=== PATIENT | female | born 1945 | race Two or more races ===

== ENCOUNTER 2019-12-06 00:41 | Inpatient (IN) | payer MEDICARE, MEDICAID ==
[~2019-12-06] VITALS: Ht 157.5 cm; Wt 78.1 kg
--- NOTE | 2019-12-06 00:53 | NUR ---
BIB EMS C/O PALPITATION. PT A, OX3, UZBEK SPEAKING. DENIED CP OR SOB. PLACED ON A ,MONITOR
[2019-12-06] MEDS ORDERED: LORAZEPAM 1 MG TABLET PO ONE (01:00)
[2019-12-06] MEDS ORDERED: LORAZEPAM 1 MG TABLET ONE (01:10)
[2019-12-06 01:14] LABS: BASOPHILS # (AUTO) 0.1 /CMM (0.0-0.2); BASOPHILS % (AUTO) 0.6 % (0.0-2.0); EOSINOPHILS % (AUTO) 1.2 % (0.0-6.0); HEMATOCRIT 38 % (33-45); HEMOGLOBIN 12.2 g/dL (11.5-14.8); LYMPHOCYTES # (AUTO) 1.5 /CMM (0.8-4.8); LYMPHOCYTES % (AUTO) 11.9 % (20.0-44.0); MEAN CORPUSCULAR HGB CONC 32 g/dl (31.0-36.0); MEAN CORPUSCULAR VOLUME 83 fL (82-100); MONOCYTES # (AUTO) 0.9 /CMM (0.1-1.30); MONOCYTES % (AUTO) 6.7 % (2.0-12.0); NEUTROPHILS # (AUTO) 10.2 /CMM (1.8-8.9); NEUTROPHILS % (AUTO) 79.6 % (43.0-81.0); PLATELET COUNT (AUTO) 302 /CMM (150-450); RED BLOOD CELL COUNT(AUTO) 4.57 MIL/uL (4.0-5.2); WHITE BLOOD COUNT (AUTO) 12.9 K/uL (4.3-11.0)
[2019-12-06 01:30] LABS: ALANINE AMINOTRANSFERASE 12 U/L (12-78); ALBUMIN 3.7 g/dL (3.4-5.0); ALKALINE PHOSPHATASE 105 U/L (46-116); ASPARTATE AMINOTRANSFERASE 19 U/L (15-37); BILIRUBIN,TOTAL 0.2 mg/dL (0.2-1.0); CALCIUM, SERUM 9.4 mg/dL (8.5-10.1); CARBON DIOXIDE 22 mmol/L (21-32); CHLORIDE 101 mmol/L (98-107); CREATININE 2.1 mg/dL (0.6-1.3); GLUCOSE 167 mg/dL (74-106); POTASSIUM 4.3 mmol/L (3.5-5.1); SODIUM SERUM 136 mmol/L (136-145); TOTAL PROTEIN, SERUM 7.4 g/dL (6.4-8.2); UREA NITROGEN, BLOOD 44 mg/dL (7-18)
--- NOTE | 2019-12-06 01:52 | NUR ---
DARRON (DAUGHTER) CONTACT INFORMATION: [phone]
[2019-12-06] MEDS ORDERED: ASPIRIN 325 MG TABLET PO ONE (02:00)
[2019-12-06] MEDS ORDERED: ASPI-1152 PO (02:02)
[2019-12-06] MEDS ORDERED: TRAM50TA2 PO (02:02)
[2019-12-06] MEDS ORDERED: FURO20TA4 PO (02:02)
[2019-12-06] MEDS ORDERED: ERGO500040 (02:02)
[2019-12-06] MEDS ORDERED: ROSU10TA2 PO (02:02)
[2019-12-06] MEDS ORDERED: ASPIRIN 325 MG TABLET ONE (02:10)
[2019-12-06] MEDS ORDERED: CEFTRIAXONE 1GM BAG (ER ONLY) 50 ML IV ONE (02:19)
[2019-12-06] MEDS ORDERED: AZITHROMYCIN 500 MG VIAL ONE (02:25)
[2019-12-06] MEDS ORDERED: RIVA2.5T PO (02:29)
[2019-12-06] MEDS ORDERED: BIMA2.5D5 EACHEYE (02:29)
[2019-12-06] MEDS ORDERED: SITA100T PO (02:29)
[2019-12-06] MEDS ORDERED: INSU100I4 SQ (02:29)
[2019-12-06] MEDS ORDERED: HYDR100T27 PO (02:29)
[2019-12-06] MEDS ORDERED: GABA-532 PO (02:29)
[2019-12-06] MEDS ORDERED: GLIP5TAB26 PO (02:29)
[2019-12-06] MEDS ORDERED: DEXL60CA3 PO (02:29)
[2019-12-06] MEDS ORDERED: ICOS1CAP PO (02:29)
[2019-12-06] MEDS ORDERED: FENO145T21 PO (02:29)
[2019-12-06] MEDS ORDERED: ALEN70TA6 PO (02:29)
[2019-12-06] MEDS ORDERED: CLON0.2T PO (02:29)
[2019-12-06] MEDS ORDERED: MECL-159 PO (02:29)
[2019-12-06] MEDS ORDERED: INSU100I26 SQ (02:29)
[2019-12-06] MEDS ORDERED: OLME1TAB16 PO (02:29)
[2019-12-06] MEDS ORDERED: AMLO5TAB9 PO (02:29)
[2019-12-06] MEDS ORDERED: DONE5TAB34 PO (02:29)
[2019-12-06] MEDS ORDERED: DILT-4 PO (02:29)
[2019-12-06] MEDS ORDERED: AZITHROMYCIN 500 MG in IV D5W 250 ML IV ONE (02:30)
[2019-12-06] MEDS ORDERED: CEFTRIAXONE 1GM BAG (ER ONLY) 1 GM/50 ML PIGGYBACK IV ONE (02:30)
[2019-12-06] MEDS ORDERED: hydrALAZINE HCL IV 20 MG VIAL ONE (02:36)
[2019-12-06] MEDS ORDERED: hydrALAZINE HCL IV 20 MG VIAL IV ONE (03:00)
--- NOTE | 2019-12-06 03:03 | NUR ---
REPORT GIVEN TO ZAIRA ON THIRD FLOOR
--- NOTE | 2019-12-06 03:20 | NUR ---
PT WAS TRANSFERRED TO 311 UNDER ACLS
--- NOTE | 2019-12-06 03:25 | NUR ---
RN OPEN NOTES RECEIVED PATIENT FROM ER VIA [facility]. A/OX3. NO SIGNS OF DISTRESS OR DISCOMFORT. BREATHING EVEN AND UNLABORED. IV ACCESS IN L HAND WITH AZITHROMYCIN INFUSING, PATENT AND INTACT, NO SIGNS OF REDNESS OR INFILTRATION. ORIENTED PATIENT TO UNIT AND ROOM. ATTACHED TO TELE MONITOR WITH SR 80 NOTED. BED IN LOW LOCKED POSITION WITH SIDE RAILS X2. CALL LIGHT WITHIN REACH. WILL CONTINUE TO MONITOR.
[2019-12-06] MEDS ORDERED: HYDROCODONE/APAP 5/325MG 1 EACH TABLET PO PRN (03:30)
[2019-12-06] MEDS ORDERED: ZOLPIDEM TARTRATE 5 MG TABLET PO PRN (03:30)
[2019-12-06] MEDS ORDERED: ACETAMINOPHEN 325 MG TABLET PO PRN (03:30)
[2019-12-06] MEDS ORDERED: MAGNESIUM HYDROXIDE 30 ML UDC PO PRN (03:30)
[2019-12-06] MEDS ORDERED: ONDANSETRON HCL/PF 4 MG/2 ML VIAL IVP PRN (03:30)
[2019-12-06] MEDS ORDERED: Z GUARD REMEDY 2 OZ OINT TP PRN (03:30)
[2019-12-06] MEDS ORDERED: MAG HYDROX/AL HYDROX/SIMETH 30 ML UDC PO PRN (03:30)
[2019-12-06 04:11] VITALS: BP 155/63
[2019-12-06] MEDS ORDERED: ALENDRONATE 70 MG TABLET PO SCH (06:00)
--- NOTE | 2019-12-06 06:41 | NUR ---
RN CLOSING NOTES PATIENT RESTING IN BED, EASILY AROUSABLE. A/OX3. NO SIGNS OF DISTRESS OR DISCOMFORT. BREATHING EVEN AND UNLABORED. IV ACCESS IN L HAND, PATENT AND INTACT, NO SIGNS OF REDNESS OR INFILTRATION. ON TELE MONITORING WITH SR 63 NOTED. ALL NEEDS MET. NO SIGNIFICANT CHANGES THROUGH THE NIGHT. BED IN LOW LOCKED POSITION WITH SIDE RAILS X2. CALL LIGHT WITHIN REACH. WILL ENDORSE TO AM SHIFT FOR ALDA.
[2019-12-06] MEDS: FUROSEMIDE 40 MG/4 ML VIAL IV SCH ×3 (07:08→15:34)
[2019-12-06 08:00] VITALS: BP 148/61
--- NOTE | 2019-12-06 08:00 | NUR ---
RN NOTES RECEIVED PATIENT IN THE BED A/O X4 ARMENIA SPEAKER FEMALE. PATIENT HAS NO ACUTE RESPIRATORY DISTRESS,UNLABORED BREATHING. V/S STABLE, PATIENT REFUSED PAIN, ON TELE SR-83. PATIENT AMBULATORY, ASSIST BATHROOM FOR SAFETY. ADMINISTERED SCHEDULED MEDICATION, IV [id number] ON LEFT HAND INTACT. CALL LIGHT WITHIN TO REACH, CONTINUED MONITORING.
[2019-12-06] MEDS ORDERED: CLONIDINE HCL 0.2 MG TABLET PO SCH (09:00)
[2019-12-06] MEDS ORDERED: glipiZIDE XL 2.5 MG TAB.OSM.24 PO SCH (09:00)
[2019-12-06] MEDS ORDERED: FUROSEMIDE 40 MG/4 ML VIAL IV SCH (09:00)
[2019-12-06] MEDS ORDERED: GLIPIZIDE XL 5 MG TAB.OSM.24 PO SCH (09:00)
[2019-12-06] MEDS: DILTIAZEM HCL CD 240 MG PO SCH (09:51)
[2019-12-06] MEDS: ASPIRIN EC 81 MG TABLET.DR PO SCH (09:51)
[2019-12-06] MEDS: hydrALAZINE HCL 50 MG TABLET PO SCH ×3 (09:52→17:15)
[2019-12-06] MEDS: MECLIZINE HCL 25 MG TABLET PO SCH (09:52)
[2019-12-06] MEDS: ATORVASTATIN 40 MG TABLET PO SCH (09:52)
[2019-12-06] MEDS: GABAPENTIN 100 MG CAPSULE PO SCH (09:52)
[2019-12-06] MEDS: FENOFIBRATE NANOCRYS (145 MG) 145 MG TABLET PO SCH (09:52)
[2019-12-06] MEDS: LINAGLIPTIN 5 MG TABLET PO SCH (09:53)
[2019-12-06] MEDS: TRAMADOL HCL 50 MG TABLET PO SCH ×2 (09:54→17:20)
[2019-12-06] MEDS: DONEPEZIL 5 MG TABLET PO SCH (09:54)
[2019-12-06] MEDS: RIVAROXABAN 10 MG TABLET PO SCH ×2 (10:02→17:21)
[2019-12-06] MEDS: AMLODIPINE BESYLATE 5 MG TABLET PO SCH (10:03)
[2019-12-06] MEDS: CLONIDINE HCL 0.1 MG TABLET PO SCH ×4 (10:04→17:16)
--- NOTE | 2019-12-06 12:00 | NUR ---
RN N NOTES BS-252 MG/DL COVERAGE GIVEN, PATIENT TOLERATED LUNCH WELL, MED COMPLIANT. SEEN HOSPITALIST, NO NEW ORDER. CONTINUED HOSPITALIZATION. PER ACCOUNT CLASSIFICATION CLERK COLLECT UA. ORDER TAKEN AND CARRIED OUT.
--- NOTE | 2019-12-06 12:30 | NUR ---
RN NOTES UA COLLECTED CLEAN CATCH, CALLED LAB FOR HYDROPRESS OPERATOR/
[2019-12-06] MEDS ORDERED: *INSULIN REGULAR(HUMULIN R)HUM 100 UNIT/ML VIAL SQ PRN (13:00)
[2019-12-06] MEDS ORDERED: DEXTROSE 50%-WATER 50 ML DISP.SYRIN IV PRN (13:00)
[2019-12-06] MEDS: INSULIN REGULAR, HUMAN 100 UNIT/ML 3 ML VIAL SQ PRN ×2 (14:13→17:23)
[2019-12-06 14:44] LABS: APPEARANCE,URINE CLEAR (CLEAR); BILIRUBIN,URINE NEGATIVE (NEGATIVE); BLOOD, URINE NEGATIVE Ery/uL (NEGATIVE); COLOR,URINE YELLOW (YELLOW); KETONES,URINE NEGATIVE (NEGATIVE); LEUKOCYTE ESTERASE ,URINE NEGATIVE (NEGATIVE); NITRITE, URINE NEGATIVE (NEGATIVE); PH,URINE 5.5 (5.0-8.0); PROTEIN,URINE NEGATIVE (NEGATIVE); UGLUCOSE NEGATIVE (NEGATIVE); UROBILINOGEN,URINE 0.2 EU/dL (0.2)
[2019-12-06 14:46] LABS: EOSINOPHIL,URINE None Seen
[2019-12-06 14:53] LABS: CREATININE, URINE 27.1 MG/DL (30.0-125.0); URINE TOTAL PROTEIN 11.9 mg/dL (0-11.9)
[2019-12-06 16:00] VITALS: BP 147/50
[2019-12-06] MEDS: BLOOD SUGAR DIAGNOSTIC 1 EACH STRIP VI SCH ×2 (17:13→21:56)
[2019-12-06] MEDS ORDERED: BIMATOPROST 2.5 ML DROPS OP SCH (18:00)
--- NOTE | 2019-12-06 18:00 | NUR ---
RN NOTES BS-235 MG/DL COVERAGE GIVEN, ALSO ADMINISTERED SCHEDULED MEDICATION, V/S STABLE, TOLERATED DINNER WELL. ASSIST PATIENT TO THE BATHROOM, CALL LIGHT WITHIN TO REACH. ENDORSED ONCOMING NURSE FOLLOW PLAN OF CARE.
--- NOTE | 2019-12-06 19:30 | NUR ---
TAMPER OPERATOR OPENING NOTES RECEIVED PATIENT FROM MORNING SHIFT, ALERT AND ORIENTED X 3. AMBULATORY WITH ASSIST, VERBALLY RESPONSIVE AND ABLE TO FOLLOW DIRECTIONS. BREATHING REGULAR AND UNLABORED ON ROOM AIR. LEFT HAND G20 IV LINE INTACT AND PATENT, FLUSHING WELL WITH NO BLEEDING OR S/S OF INFILTRATION NOTED. ON CARDIAC MONITORING WITH NSR AT 88bpm. DENIES ANY SUICIDAL/HOMICIDAL IDEATION AT THIS TIME. NO COMPLAINTS OF PAIN/DISCOMFORT REPORTED OF NOW. BED LOW AND LOCKED ON SEMI FOWLERS POSITION. CALL LIGHT IN REACH. WILL CONTINUE TO MONITOR.
[2019-12-06 20:00] VITALS: BP 137/51
[2019-12-06 22:00] VITALS: BP 137/51
--- NOTE | 2019-12-06 22:00 | NUR ---
FAIRING WORKER NOTES BS 185mg/dl NOTED, 3UNITS GIVEN SQ. SNACKS PROVIDED ON BEDSIDE. WILL CONTINUE TO MONITOR.
[2019-12-07 06:33] LABS: BASOPHILS # (AUTO) 0.1 /CMM (0.0-0.2); BASOPHILS % (AUTO) 0.9 % (0.0-2.0); EOSINOPHILS % (AUTO) 4.1 % (0.0-6.0); HEMATOCRIT 37 % (33-45); HEMOGLOBIN 11.8 g/dL (11.5-14.8); LYMPHOCYTES # (AUTO) 1.7 /CMM (0.8-4.8); LYMPHOCYTES % (AUTO) 17.8 % (20.0-44.0); MEAN CORPUSCULAR HGB CONC 32 g/dl (31.0-36.0); MEAN CORPUSCULAR VOLUME 83 fL (82-100); MONOCYTES # (AUTO) 0.9 /CMM (0.1-1.30); MONOCYTES % (AUTO) 9.2 % (2.0-12.0); NEUTROPHILS # (AUTO) 6.4 /CMM (1.8-8.9); PLATELET COUNT (AUTO) 307 /CMM (150-450); RED BLOOD CELL COUNT(AUTO) 4.48 MIL/uL (4.0-5.2); WHITE BLOOD COUNT (AUTO) 9.4 K/uL (4.3-11.0)
[2019-12-07] MEDS: INSULIN REGULAR, HUMAN 100 UNIT/ML 3 ML VIAL SQ PRN ×2 (06:33→12:01)
--- NOTE | 2019-12-07 06:35 | NUR ---
CASINO ASSISTANT MANAGER NOTES BS 243mg/dl, 6UNITS REGULAR INSULIN GIVEN SQ. SNACKS PROVIDED ON BEDSIDE. WILL CONTINUE TO MONITOR.
--- NOTE | 2019-12-07 06:40 | NUR ---
CENTRIFUGE SEPARATOR TENDER CLOSING NOTES PATIENT IN BED ALERT AND ORIENTED X 3. BREATHING REGULAR AND UNLABORED ON ROOM AIR. LEFT HAND G20 IV LINE PATENT AND FLUSHING WELL. MAINTAINED ON CARDIAC MONITORING WITH NSR AT 86bpm. NO COMPLAINTS OF PAIN/DISCOMFORT REPORTED THE WHOLE SHIFT. BED LOW AND LOCKED ON SEMI FOWLERS POSITION. CALL LIGHT IN REACH. WILL ENDORSE TO MORNING SHIFT FOR ALDA.
[2019-12-07] MEDS: BLOOD SUGAR DIAGNOSTIC 1 EACH STRIP VI SCH ×3 (06:49→17:30)
[2019-12-07 06:56] LABS: ALANINE AMINOTRANSFERASE 18 U/L (12-78); ALBUMIN 3.1 g/dL (3.4-5.0); ALKALINE PHOSPHATASE 91 U/L (46-116); ASPARTATE AMINOTRANSFERASE 13 U/L (15-37); B-TYPE NATRIURETIC PEPTIDE 4059 PG/ML (0-125); BILIRUBIN,TOTAL 0.4 mg/dL (0.2-1.0); CALCIUM, SERUM 8.7 mg/dL (8.5-10.1); CARBON DIOXIDE 26 mmol/L (21-32); CHLORIDE 101 mmol/L (98-107); CREATININE 2.2 mg/dL (0.6-1.3); GLUCOSE 264 mg/dL (74-106); MAGNESIUM 2.3 mg/dL (1.8-2.4); PHOSPHORUS 5.1 mg/dL (2.5-4.9); POTASSIUM 4.6 mmol/L (3.5-5.1); SODIUM SERUM 137 mmol/L (136-145); TOTAL PROTEIN, SERUM 6.6 g/dL (6.4-8.2); UREA NITROGEN, BLOOD 48 mg/dL (7-18)
[2019-12-07 07:00] LABS: CHOLESTEROL 150 mg/dL (<200); CREATINE KINASE, TOTAL 53 U/L (26-192); HDL CHOLESTEROL 57 mg/dL (40-60); LDL 73 mg/dL (0-99); THYROID STIMULATING HORMONE 1.715 uIU/mL (0.358-3.74); TRIGLYCERIDES 138 mg/dL (30-150)
[2019-12-07 08:00] VITALS: BP 163/61
[2019-12-07] MEDS: RIVAROXABAN 10 MG TABLET PO SCH ×2 (08:37→16:47)
[2019-12-07] MEDS: MECLIZINE HCL 25 MG TABLET PO SCH (08:38)
[2019-12-07] MEDS: GABAPENTIN 100 MG CAPSULE PO SCH (08:38)
[2019-12-07] MEDS: DILTIAZEM HCL CD 240 MG PO SCH (08:38)
[2019-12-07] MEDS: ASPIRIN EC 81 MG TABLET.DR PO SCH (08:38)
[2019-12-07] MEDS: FENOFIBRATE NANOCRYS (145 MG) 145 MG TABLET PO SCH (08:38)
[2019-12-07] MEDS: DONEPEZIL 5 MG TABLET PO SCH (08:38)
[2019-12-07] MEDS: LINAGLIPTIN 5 MG TABLET PO SCH (08:38)
[2019-12-07] MEDS: ATORVASTATIN 40 MG TABLET PO SCH (08:38)
[2019-12-07] MEDS: hydrALAZINE HCL 50 MG TABLET PO SCH ×3 (08:39→16:49)
[2019-12-07] MEDS: CLONIDINE HCL 0.1 MG TABLET PO SCH ×3 (08:39→16:48)
[2019-12-07] MEDS: AMLODIPINE BESYLATE 5 MG TABLET PO SCH (08:39)
[2019-12-07] MEDS: TRAMADOL HCL 50 MG TABLET PO SCH ×2 (08:51→16:45)
[2019-12-07] MEDS ORDERED: FUROSEMIDE 40 MG TABLET PO SCH (09:00)
--- NOTE | 2019-12-07 09:42 | NUR ---
MS RN - OPENING NOTES Received patient from can striper nurse, in bed, awake, coherent and cooperative, non-labored breathing noted, IV line access at left hand.
[2019-12-07] MEDS ORDERED: FURO-145 PO (11:52)
[2019-12-07 16:00] VITALS: BP 121/46
[2019-12-07 16:49] VITALS: BP 121/46
[2019-12-07] MEDS ORDERED: LATANOPROST EYE DROP 0.005% 2.5 ML BOTTLE EACHEYE SCH (18:00)
--- NOTE | 2019-12-07 18:49 | NUR ---
MS RN - DISCHARGE Patient is A/0 x4, afebrile, no signs of distress, ambulatory, skin intact, coherent and cooperative. Patient verbalized understanding discharge instructions. Instructed patient if any signs of chest pain, palpitation or any signs that is detrimental to her health she should seek some help. Addendum: 12/07/19 at 1918 by GEORGINA LARA RN In addtion to above notes, heplock at left hand was removed, no redness on the site noted, skin was intact. Discharged papers were given to patient with lab results. Accompanied to the car by wheelchair to meet with her daughter at the lobby to go home.
[2019-12-08 12:08] LABS: *SPE ALBUMIN 2.9 g/dL (2.9-4.4); *SPE ALPHA-1-GLOBULIN 0.3 g/dL (0.0-0.4); *SPE BETA GLOBULIN 0.9 g/dL (0.7-1.3); *SPE GLOBULIN, TOTAL 2.9 g/dL (2.2-3.9); *SPE M-SPIKE Not Observed g/dL (Not Observed); *SPEGAMMA GLOBULIN 0.7 g/dL (0.4-1.8); PTH, INTACT 80 pg/mL (15-65)
[2019-12-10] MEDS ORDERED: ERGOCALCIFEROL (VITAMIN D 2) 50,000 UNIT CAPSULE PO SCH (09:00)
== END 2019-12-07 18:45 | disposition home or self-care (01) | DRG 194 ==
LOC: ER 00:42 → TELE 02:34 → TELE2 13:22
PROVIDERS: ADMIT Internal Medicine; ATTEND Internal Medicine
DX: I13.0 Hypertensive heart and chronic kidney disease with heart failure and stage 1 through stage 4 chronic kidney disease, or unspecified chronic kidney disease (principal); I21.A1 Myocardial infarction type 2; N17.0 Acute kidney failure with tubular necrosis; G93.41 Metabolic encephalopathy; E11.22 Type 2 diabetes mellitus with diabetic chronic kidney disease; E11.42 Type 2 diabetes mellitus with diabetic polyneuropathy; E11.65 Type 2 diabetes mellitus with hyperglycemia; I50.9 Heart failure, unspecified; I48.91 Unspecified atrial fibrillation; N18.9 Chronic kidney disease, unspecified; Z79.82 Long term (current) use of aspirin; Z79.899 Other long term (current) drug therapy; Z79.4 Long term (current) use of insulin; Z79.84 Long term (current) use of oral hypoglycemic drugs; E78.5 Hyperlipidemia, unspecified; I25.10 Atherosclerotic heart disease of native coronary artery without angina pectoris; M81.0 Age-related osteoporosis without current pathological fracture; Z95.1 Presence of aortocoronary bypass graft; Z79.83 Long term (current) use of bisphosphonates; Z79.01 Long term (current) use of anticoagulants; F03.90 Unspecified dementia, unspecified severity, without behavioral disturbance, psychotic disturbance, mood disturbance, and anxiety; D72.829 Elevated white blood cell count, unspecified; I49.9 Cardiac arrhythmia, unspecified; N28.1 Cyst of kidney, acquired
CPT/HCPCS: 36415; 71045-TC; 76770-TC; 80053-TC; 80061-TC; 81000-TC; 82550-TC; 82570-TC; 82962-TC; 83735-TC; 83880; 83970; 84100-TC; 84155; 84155-TC; 84165; 84300-TC; 84443-TC; 84484-TC; 85025-TC; 87040-TC; 87081-TC; 93307-TC; G0378; J0360; J0456; J0696; J1815; J1940; J7060; J8597